=== PATIENT | male | born 1990 | race African-American/Black ===

== ENCOUNTER 2019-04-09 23:57 | Emergency (ER) | payer SELFPAY ==
[~2019-04-09] VITALS: Ht 185.4 cm; Wt 118.2 kg
[2019-04-10 00:01] VITALS: Ht 185.4 cm; Wt 118.2 kg
[2019-04-10 00:16] LABS: BASOPHILS 0.2 % (0-2); EOSINOPHILS 0.1 % (0-7); HEMATOCRIT 42.2 % (42.0-54.0); HEMOGLOBIN 14.8 g/dL (13.5-17.5); IMMATURE GRANULOCYTES 0.3 % (0-5); LYMPHOCYTES 15.3 % (15-50); MCH 33.8 pg (26.0-34.0); MCHC 35.1 g/dL (31.0-37.0); MCV 96.3 fL (80.0-100.0); MEAN PLATELET VOLUME 10.6 fL (7.4-10.4); MONOCYTES 9.3 % (2-11); NEUTROPHILS 74.8 % (40-80); PLATELET COUNT 170 10x3/uL (130-400); RBC 4.38 10x6/uL (4.20-6.10); RDW 12.2 % (11.5-14.5); WBC 13.5 10x3/uL (4.8-10.8)
[2019-04-10 01:04] LABS: ALBUMIN 4.5 g/dL (3.4-5.0); ANION GAP 32.2 mmol/L (8-16); BILIRUBIN - TOTAL 1.98 mg/dL (0.2-1.3); CALCIUM 8.6 mg/dL (8.5-10.1); CARBON DIOXIDE 15.6 mmol/L (21.0-32.0); MAGNESIUM - SERUM 1.1 mg/dL (1.8-2.4); PROTEIN - SERUM 9.3 g/dL (6.4-8.2)
[2019-04-10 01:05] LABS: POTASSIUM - SERUM 2.8 mmol/L (3.5-5.1)
[2019-04-10] MEDS ORDERED: DILANTIN100 MG PO (03:08)
[2019-04-10] MEDS ORDERED: TENORMIN50 MG PO (03:09)
[2019-04-10 03:56] VITALS: BP 128/77
[2019-04-10 04:11] LABS: APPEARANCE CLEAR (CLEAR); COLOR YELLOW (YELLOW); SPECIFIC GRAVITY 1.015 (1.005-1.020)
[2019-04-10 04:12] LABS: BACTERIA FEW /hpf (NONE SEEN); BILIRUBIN NEGATIVE (NEGATIVE); GLUCOSE NEGATIVE (NEGATIVE); KETONE LARGE mg/dL (NEGATIVE); NITRITE NEGATIVE (NEGATIVE); PROTEIN 1+ mg/dL (NEGATIVE); UROBILINOGEN NORMAL (NORMAL)
[2019-04-10 04:23] LABS: UDS - AMPHET NEGATIVE QUAL (NEGATIVE); UDS - BARB NEGATIVE QUAL (NEGATIVE); UDS - BENZO NEGATIVE QUAL (NEGATIVE); UDS - COCAINE NEGATIVE QUAL (NEGATIVE); UDS - OPIATE NEGATIVE QUAL (NEGATIVE); UDS - PCP NEGATIVE QUAL (NEGATIVE); UDS - THC NEGATIVE QUAL (NEGATIVE)
== END 2019-04-10 03:56 | disposition home or self-care (01) ==
LOC: D.ER 23:57
PROVIDERS: Emergency Medicine
DX: G40.909 Epilepsy, unspecified, not intractable, without status epilepticus (principal); E87.6 Hypokalemia; E83.42 Hypomagnesemia; N28.9 Disorder of kidney and ureter, unspecified